=== PATIENT | female | born 1995 | race Caucasian/White ===

== ENCOUNTER 2024-03-15 08:00 | Outpatient (CLI) | payer OTHER ==
[2024-03-15 17:40] LABS: BILIRUBIN,URINE NEGATIVE (NEGATIVE); GLUCOSE, URINE (UA) NEGATIVE (NEGATIVE); KETONES,URINE (UA) NEGATIVE (NEGATIVE); LEUKOCYTE ESTERASE, URINE NEGATIVE (NEGATIVE); NITRITE,URINE NEGATIVE (NEGATIVE); OCCULT BLOOD,URINE NEGATIVE (NEGATIVE); PROTEIN,URINE NEGATIVE (NEGATIVE); UROBILINOGEN,URINE 0.2 (NORMAL) E.U./dL (NORMAL)
[2024-03-15 17:47] LABS: CLARITY,URINE CLEAR (CLEAR)
[2024-03-15 17:57] LABS: WBC,URINE 0-3 /HPF (0-5)
[2024-03-15 17:58] LABS: BACTERIA,URINE Few /HPF (None Seen); RBC,URINE 0-5 /HPF (0-5); SQUAMOUS EPITHELIAL CELL,UR MOD Squamous (<= Few)
== END 2024-03-15 23:59 | disposition home or self-care (01) ==
LOC: LAB.WC 08:00
PROVIDERS: ATTEND Nurse Practitioner
DX: Z34.00 Encounter for supervision of normal first pregnancy, unspecified trimester (principal)
CPT/HCPCS: 81001; 87086

== ENCOUNTER 2024-04-05 17:27 | Outpatient (CLI) | payer OTHER ==
[2024-04-05 17:56] LABS: BASOPHILS # (AUTO) 0.1 10^3/uL (0.0-0.1); BASOPHILS % (AUTO) 0.4 %; EOSINOPHILS # (AUTO) 0.2 10^3/uL (0.0-0.7); EOSINOPHILS % (AUTO) 1.3 %; HCT - HEMATOCRIT 38.9 % (37.0-47.0); HGB - HEMOGLOBIN 13.2 g/dL (12.0-16.0); LYMPHOCYTES # (AUTO) 4.6 10^3/uL (1.5-3.5); LYMPHOCYTES % (AUTO) 36.2 %; MEAN CORPUSCULAR HEMOGLOBIN 29.7 pg (27.0-31.0); MEAN CORPUSCULAR HGB CONC 33.9 g/dL (32.0-36.0); MEAN CORPUSCULAR VOLUME 87.4 fL (81.0-99.0); MEAN PLATELET VOLUME 10.6 fL (7.9-10.8); MONOCYTES # (AUTO) 0.8 10^3/uL (0.0-1.0); MONOCYTES % (AUTO) 5.9 %; NEUTROPHILS # (AUTO) 7.2 10^3/uL (1.5-6.6); NEUTROPHILS % (AUTO) 55.9 %; PLT - PLATELET COUNT 264 10^3/uL (130-450); RED BLOOD COUNT 4.45 10^6/uL (4.20-5.40); RED CELL DISTRIBUTION WIDTH 12.4 % (12.0-15.0); WHITE BLOOD COUNT 12.8 x10^3/uL (4.8-10.8)
[2024-04-05 20:51] LABS: ESTIMATED AVERAGE GLUCOSE 91 mg/dL (70-100); HEMOGLOBIN A1c% 4.8 % (4.27-6.07)
[2024-04-05 20:57] LABS: CHLAMYDIA TRACHOMATIS DNA NEGATIVE (NEGATIVE); NEISSERIA GONORRHOEAE DNA NEGATIVE (NEGATIVE); TRICHOMONAS VAGINALIS DNA NEGATIVE (NEGATIVE)
[2024-04-07 05:09] LABS: HIV SCREEN 4TH GENERATION Non Reactive (Non Reactive)
[2024-04-07 06:08] LABS: HBsAG SCREEN Negative (Negative)
[2024-04-07 11:08] LABS: VARICELLA-ZOSTER AB IGG 336 index (Immune >165)
[2024-04-08 05:28] LABS: HCV AB Non Reactive (Non Reactive)
== END 2024-04-05 17:28 | disposition home or self-care (01) ==
LOC: LAB 17:27
PROVIDERS: ATTEND Nurse Practitioner
DX: Z36.8A Encounter for antenatal screening for other genetic defects (principal); O99.280 Endocrine, nutritional and metabolic diseases complicating pregnancy, unspecified trimester; E28.2 Polycystic ovarian syndrome
CPT/HCPCS: 36415; 83036; 85025; 86592; 86762; 86787; 86803; 86850; 86900; 86901; 87340; 87389; 87491; 87591; 87661

== ENCOUNTER 2024-10-24 07:50 | Inpatient (IN) ==
[2024-10-24] MEDS ORDERED: METHYLERGONOVINE 0.2 MG/ML VIAL IM PRN ×2 (08:14→20:17)
[2024-10-24] MEDS ORDERED: SODIUM CHLORIDE FLUSH 0.9% 10 ML SYRINGE IVP PRN ×2 (08:14→20:17)
[2024-10-24] MEDS ORDERED: NIFEdipine 10 MG CAPSULE PO PRN ×2 (08:14→20:17)
[2024-10-24] MEDS ORDERED: CARBOPROST TROMETHAMINE 250 MCG/ML VIAL IM PRN (08:14)
[2024-10-24] MEDS ORDERED: miSOPROStoL 200 MCG TABLET BC PRN ×2 (08:14→20:17)
[2024-10-24] MEDS ORDERED: lidocaine 1% 20 ML MDV ID PRN ×2 (08:14→20:17)
[2024-10-24] MEDS ORDERED: LACTATED RINGERS 1,000 ML IV PRN ×2 (08:14→20:17)
[2024-10-24] MEDS ORDERED: ONDANSETRON 4 MG/2 ML VIAL IVP PRN ×2 (08:14→21:31)
[2024-10-24] MEDS ORDERED: hydrALAZINE INJ 20 MG/ML VIAL IVP PRN ×3 (08:14→20:17)
[2024-10-24] MEDS ORDERED: LABETALOL 20 MG/4 ML SYRINGE IVP PRN ×6 (08:14→20:17)
[2024-10-24] MEDS ORDERED: OXYTOCIN 10 UNIT/ML VIAL IM PRN ×2 (08:14→20:17)
[2024-10-24] MEDS ORDERED: OXYTOCIN/SODIUM CHLORIDE 500 ML IV PRN ×2 (08:14→20:17)
[2024-10-24 08:52] LABS: BASOPHILS % (AUTO) 0.2 %; EOSINOPHILS # (AUTO) 0.1 10^3/uL (0.0-0.7); EOSINOPHILS % (AUTO) 0.9 %; HCT - HEMATOCRIT 35.5 % (37.0-47.0); HGB - HEMOGLOBIN 10.9 g/dL (12.0-16.0); LYMPHOCYTES # (AUTO) 2.3 10^3/uL (1.5-3.5); LYMPHOCYTES % (AUTO) 17.5 %; MEAN CORPUSCULAR HEMOGLOBIN 24.8 pg (27.0-31.0); MEAN CORPUSCULAR HGB CONC 30.7 g/dL (32.0-36.0); MEAN CORPUSCULAR VOLUME 80.7 fL (81.0-99.0); MEAN PLATELET VOLUME 11.8 fL (7.9-10.8); MONOCYTES # (AUTO) 0.8 10^3/uL (0.0-1.0); MONOCYTES % (AUTO) 6.1 %; NEUTROPHILS # (AUTO) 9.6 10^3/uL (1.5-6.6); NEUTROPHILS % (AUTO) 74.8 %; PLT - PLATELET COUNT 260 10^3/uL (130-450); WHITE BLOOD COUNT 12.8 x10^3/uL (4.8-10.8)
[2024-10-24] MEDS: miSOPROStoL 100 MCG TABLET PO SCH (08:56)
--- NOTE | 2024-10-24 09:17 | HISTORY & PHYSICAL EXAMINATION ---
Admit History Smoking Status: Never smoker Other Maternal History Other Maternal History: HPI: This 28 yo @ 40+3 weeks by LMP and confirmed by 11+4 week ultrasound. She had been marlee irregularity yesterday and last night but they had stopped and she is here for an elective induction of labor today. Upon arrival her cervix was 1cm/60/-3/posterior/soft and vertex with intact membranes. ZARCO SCORE: 5. We reviewed management options at length and she has been consented for elective induction of labor with risks to include but not limited to section, vacuum extraction, episiotomy. She has been a Midwifery patient of [facility] care for the duration of her which has remained uncomplicated. ROS: No Headache, visual changes or right upper quadrant abdominal pain. Denies significant N/V. Denies urinary urgency or dysuria. All other symptoms reviewed and were negative except per HPI. In the event of an emergency, accepts the administration of blood products. Recent BP: 118/81 Labs: 10.9/35.5, 260 Last u/s EFW: FAS, 50% Total maternal weight gain: 36# ALLERGIES NKDA RX: PNV, Aspirin Medical Hx: Obesity Surgeries: Lateral meniscus repair Family history: Large babies, she was over 9# at , all women seem to have vaginal deliveries Social Hx: Monogamous with male partner. Denies current use of alcohol or tobacco, marijuana or other recreational drugs. Reports that she is safe in current relationship. OB Hx: G1: SAB G2: SAB G2:Current Specific Issues/Plans LMP: 01/15/2024 DADA by LMP: 10/21/2024 US dating 04/05/2024 @ 11+4 EDC 10/20/2023 Final DADA: 10/21/2024 FOB: Cj Martínez Started LDASA @ 12 weeks. Pre- Weight: 208 lb BMI: 35.14 Blood type: A+ Antibody: negative CBC: 13.2/38.9/264 RUB:immune VZV:immune HBsAg: negative HepC: NR RPR/AB-EIA: NR HIV:NR PAP: 08/2023 (normal) no dysplasia hx. GC/CT: Collected 04/05/2024 HSV: denies Genetic testing: [id number]- Negative Covid: x 2, declines booster Flu: declines RSV: desires @ 32wks FAS: Placenta: Posterior Cord: 3VC REGAN: 14cm EFW: 399g 50gm OGCT: 112 TDAP: 07/30/2024 Breast Pump: 07/30/2024 3rd trimester [id number] HCT 35.7 HGB 11.4 3rd trimester RPR NR GBS: Negative Delivery plan: Anticipate . Contraception:unsure Physical exam: Normocephalic, atraumatic No significant edema No increased work of breathing Abdomen gravid, soft, nontender. EFW 4100 FHR baseline 135, moderate variability, + accelerations, no decelerations Contractions palpate irregularly and mild SVE /60/-3, vertex, membranes intact Bilateral LE's no edema Mood is good. Assessment: 28 yo @ 40+3 weeks gestation by 11+4 wk U/S Elective induction of labor at term FHR 135 Cat I GBS NEG Plan: Admit to [facility] for preinduction cervical ripening, misoprostol 50mcg buccal q 4 hours Continuous monitoring Jacuzzi PRN. Nitrous oxide PRN. Epidural PRN Maternal Request. Anticipate . Meds/Allgy Home Medications Ambulatory Orders Medication Instructions Recorded Confirmed aspirin 81 mg tablet,delayed 81 mg PO QDAY 05/03/24 10/04/24 release (Adult Low Dose Aspirin) vits 75-iron 28 mg-folic pkg PO 05/03/24 10/04/24 acid 800 mcg-omega3 440 mg oral pack (One Daily ) Allergies Allergies Allergy/AdvReac Type Severity Reaction Status Date / Time No Known Drug Allergies Allergy Verified 10/04/24 14:05 PFSH Active Problems All Active Problems (Updated 09/26/24 @ 12:51 by Lauren Perkins MA) Encounter for screening for Streptococcus B (Acute) Laceration of left thumb (Acute) (Acute) Breast abscess (Acute) Encounter for other specified screening (Acute) Supervision of normal first (Acute) Medical History Medical History (Updated 09/26/24 @ 12:51 by Lauren Perkins MA) PCOS (polycystic ovarian syndrome) Surgical History Surgical History (Updated 05/05/24 @ 09:52 by Liz Stanton, [place], SWITCH ADJUSTER) Status post lateral meniscus repair 2017 Social History Social History (Updated 05/05/24 @ 09:54 by Liz Stanton, [place], SWITCH ADJUSTER) Smoking Status: Never smoker Plan for Labor Plan For Labor I expect patient to be DC'd or transferred within 96 hours.: Yes Conclusion/Plan Lab Results 10/24/24 08:10
--- NOTE | 2024-10-24 13:17 | PHARMACY PROGRESS NOTE ---
Best Possible Medication History Admit Date and Time: 10/24/24 [id number] Home Medications Medication Instructions Recorded Confirmed Type aspirin 81 mg tablet,delayed 81 mg PO DAILY 05/03/24 10/24/24 History release (Adult Low Dose Aspirin) vits 75-iron 28 mg-folic 1 pkg PO DAILY 05/03/24 10/24/24 History acid 800 mcg-omega3 440 mg oral pack (One Daily ) Processed by: Pharmacy Medications reviewed in ED?: No Medication History completed: Yes Patient Interview: Completed Secondary Source(s): Insurance records [facility] Statement: As the person ultimately responsible for medication therapy, providers are able to order a medication from an existing home medication list in [facility] via the "Reconcile Routine" prior to Confirmation of that medication by field technical support consultant. Such practice is discouraged except when the physician, in their clinical judgment, deems that a medical need exists for a medication without regard to pr evious use.
--- NOTE | 2024-10-24 15:53 | ANESTHESIA PROCEDURE NOTE ---
Pre-Anesthesia VS, & Labs Diagnosis Surgical Diagnosis:: term labor pain Procedure Procedure: epidural for Vitals Vital Signs: Temp 36.9 C 10/24/24 08:11 NPO Last Fluid Intake: t/o day Last Food Intake: dinner Is Patient ?: Yes Lab Results Current Lab Results: Laboratory Tests 10/24/24 08:10: WBC 12.8 H, RBC 4.40, Hgb 10.9 L, Hct 35.5 L, MCV 80.7 L, MCH 24.8 L, MCHC 30.7 L, RDW 15.0, Plt Count 260, MPV 11.8 H, Neut # (Auto) 9.6 H, Lymph # (Auto) 2.3, [place] # (Auto) 0.8, Eos # (Auto) 0.1, Baso # (Auto) 0.0, Absolute Nucleated RBC 0.00, Nucleated RBC % 0.0, Blood Type A POSITIVE, Antibody Screen NEGATIVE Lab results reviewed: Yes 10/24/24 08:10 Meds/Allgy Home Medications Ambulatory Orders Medication Instructions Recorded Confirmed aspirin 81 mg tablet,delayed 81 mg PO DAILY 05/03/24 10/24/24 release (Adult Low Dose Aspirin) vits 75-iron 28 mg-folic 1 pkg PO DAILY 05/03/24 10/24/24 acid 800 mcg-omega3 440 mg oral pack (One Daily ) Allergies Allergies Allergy/AdvReac Type Severity Reaction Status Date / Time No Known Drug Allergies Allergy Verified 10/04/24 14:05 PFSH Active Problems All Active Problems (Updated 09/26/24 @ 12:51 by Lauren Perkins MA) Encounter for screening for Streptococcus B (Acute) Laceration of left thumb (Acute) (Acute) Breast abscess (Acute) Encounter for other specified screening (Acute) Supervision of normal first (Acute) Medical History Medical History (Updated 09/26/24 @ 12:51 by Lauren Perkins MA) PCOS (polycystic ovarian syndrome) Surgical History Surgical History (Updated 10/24/24 @ 15:53 by Melchor Jolley CRNA) S/P wisdom tooth extraction Status post lateral meniscus repair 2017 Social History Social History (Updated 05/05/24 @ 09:54 by Liz Stanton CNM, LOADER OPERATOR) Smoking Status: Never smoker Anesthesia Exam (Expanded) Exam General: Alert, Oriented x3 and Cooperative Dental: WNL Mouth Openin Fingerbreadth Neck Mobility: Normal Mallampati classification: II Thyromental Distance: 4-6 cm Respiratory: No respiratory distress Cardiovascular: Regular rate Neurological: Normal speech Mental/Cognitive Status: Alert/Oriented X3 and Normal for patient Cognitive Status: Within normal limits Exam Exam Vital Signs: Vital Signs x48h Temp 10/24/24 08:11 36.9 C Plan Plan Anesthesia Type: Epidural Consent for Procedure(s) Verified and Reviewed: Yes Code Status: Attempt Resuscitation ASA Classification ASA classification: 2-Mild systemic disease Is this case an emergency?: No
--- NOTE | 2024-10-24 18:46 | PROVIDER PROGRESS NOTE ---
Labor Progress Note Labor Progress Note Labor Progress Note/Additional Text: 135, moderate, + accelerations, - decelerations, category I tracing. Miso x3. SVE 2/60/-3/ intact, posterior membrane sweep talking through contractions. okay to administer next dose of BC misoprostol.
[2024-10-24] MEDS ORDERED: TRANEXAMIC ACID IN NACL 1,000 MG/100 ML BAG IV PRN (20:17)
[2024-10-24] MEDS ORDERED: TERBUTALINE 1 MG/ML VIAL SUBQ PRN (20:17)
[2024-10-24] MEDS ORDERED: miSOPROStoL 200 MCG TABLET PR PRN (20:17)
[2024-10-24] MEDS ORDERED: fentaNYL 100 MCG/2 ML VIAL IVP PRN (20:17)
[2024-10-24] MEDS: LACTATED RINGERS 1,000 ML IV PRN (20:30)
[2024-10-24] MEDS ORDERED: ROPIVACAINE 0.2% 200 MG/100 ML BAG EP ONE (20:52)
[2024-10-24] MEDS ORDERED: NALOXONE 0.4 MG/ML VIAL IVP PRN (21:31)
[2024-10-24] MEDS ORDERED: METOCLOPRAMIDE 10 MG/2 ML VIAL IVP PRN (21:31)
[2024-10-24] MEDS ORDERED: NALBUPHINE 10 MG/ML AMP IVP PRN (21:31)
[2024-10-24] MEDS ORDERED: diphenhydrAMINE INJ 50 MG/ML VIAL IVP PRN (21:31)
[2024-10-24] MEDS ORDERED: ePHEDrine 50 MG/ML VIAL IVP ONE (21:59)
[2024-10-24] MEDS: ePHEDrine 50 MG/ML VIAL IVP PRN (22:04)
--- NOTE | 2024-10-24 22:42 | PROVIDER PROGRESS NOTE ---
Labor Progress Note Labor Progress Note Labor Progress Note/Additional Text: SROM @ 2005, copious amount of clear fluid Florentino q 2-3 Status post 3 dose of misoprostol comfortable with epidural, difficult placement followed by hypotensive episode FHT 130, moderate variability, + accelerations, - decelerations. Category I tracing. SVE /-1 grossly ruptured, palpable forebag easily ruptured with amniohook.
[2024-10-25] MEDS: ROPIVACAINE 0.2% 200 MG/100 ML BAG EP PRN (04:10)
[2024-10-25] MEDS: SODIUM CHLORIDE FLUSH 0.9% 10 ML SYRINGE IVP SCH ×2 (07:40→07:41)
[2024-10-25] MEDS: CALCIUM CARBONATE CHEW 500 MG TABLET PO SCH (07:40)
--- NOTE | 2024-10-25 07:59 | PROVIDER PROGRESS NOTE ---
Labor Progress Note Labor Progress Note Labor Progress Note/Additional Text: Patient comfortable with dense epidural. SVE 7/100/+1/ grossly ruptured. Contractions spacing out 2-4.5 minutes. FHT baseline 140, moderate variability, + accelerations, no significant decelerations. Discussed minimal progress through the night and the recommendation for pitocin for labor augmentation. Patient agreeable. Will begin oxytocin by protocol.
[2024-10-25] MEDS: OXYTOCIN/SODIUM CHLORIDE 500 ML IV SCH (08:26)
[2024-10-25 15:15] LABS: ALBUMIN 3.4 g/dL (3.2-5.5); ALBUMIN/GLOBULIN RATIO 1.2 (1.0-2.2); BILIRUBIN,TOTAL 0.5 mg/dL (0.2-1.0); CALCIUM 8.9 mg/dL (8.5-10.3); CREATININE 0.7 mg/dL (0.6-1.3); POTASSIUM 3.8 mmol/L (3.5-4.5); TOTAL PROTEIN 6.3 g/dL (6.4-8.9)
[2024-10-25] MEDS: TRANEXAMIC ACID IN NACL 1,000 MG/100 ML BAG IV PRN (17:21)
--- NOTE | 2024-10-25 17:56 | DELIVERY NOTE ---
Delivery Note Delivery Outcome Delivery Date: 10/25/24 Delivery Time: 17:00 Delivery Comments (Free Text/Narrative) Delivery Comments (Free Text/Narrative): This 28-year-old, @ 40 +4 weeks gestation presented for elective induction of labor on 10/24/2024. Cervix was 2cm and Vertex presentation. GBS negative. Pre- induction cervical ripening with misorpostol followed by oxytocin as induction method. Maximum oxytocin infusion of 16mu/min. FHR pattern demonstrated 135 baseline in a category I prior to second stage. Normal labor course. Epidural placed upon maternal request. SROM occurred 10/25/2024 @ 2004. She then progressed to complete/complete 10/25/2024 @ 1337 and second stage began @ 1338. : Normal spontaneous vaginal delivery of a viable male infant on 10/25/2024 @ 1700. "Nik Sage" Nuchal cord x1, not reducible body cord x1, delivered through. The was placed on maternal abdomen, stimulated, dried and placed skin to skin. Apgars 8 & 9 @ 1 & 5 minutes. Her bleeding had briskly increased by infant's 3 minutes of life so the umbilical cord was doubly clamped by delivering provider and cut by FOB. 3VC. Cord blood was obtained. Fundal massage and gently cord traction applied for active management of the third stage, placenta delivered spontaneously @ 1707 but bleeding increased and a large amount of trailing membranes were identified. TXA 1g administered IV per protocol. Brisk manual sweeping to remove retained fragments amongst brisker bleeding @ 1707. QBL 1400. Placenta was not sent to pathology. Consulted MD and proceeded with recommendation not for post placental sweeping antibiotics unless symptomatic. Pitocin administered via IV for hemostasis and allowed to run freely. Uterine massage was performed until uterus was deemed firm. weight pending at this time. Inspection of the perineum was a third degree laceration in addition to right labial wall laceration. See Dr. Roman's separate dictation of perineal and vaginal wall lacerations. Uterus again massaged and found to be firm. Needle and sponge counts were correct. Uterine fundus firm and there is no excessive bleeding. Tissues well approximated. Skin to skin first with mother then with FOB. Family bonding well. Both mother and baby are in stable condition.
[2024-10-25] MEDS ORDERED: ACETAMINOPHEN 500 MG TABLET PO PRN (18:36)
[2024-10-25] MEDS ORDERED: NIFEdipine 10 MG CAPSULE PO PRN (18:36)
[2024-10-25] MEDS ORDERED: OXYTOCIN/SODIUM CHLORIDE 500 ML IV PRN (18:36)
[2024-10-25] MEDS ORDERED: hydrALAZINE INJ 20 MG/ML VIAL IVP PRN ×2 (18:36)
[2024-10-25] MEDS ORDERED: LABETALOL 20 MG/4 ML SYRINGE IVP PRN ×2 (18:36)
[2024-10-25] MEDS ORDERED: SIMETHICONE CHEW 80 MG TABLET PO PRN (18:36)
[2024-10-25] MEDS ORDERED: NALOXONE 0.4 MG/ML VIAL IVP PRN (18:36)
[2024-10-25] MEDS ORDERED: LABETALOL 5 MG/1 ML 20 ML MDV IVP PRN (18:36)
[2024-10-25] MEDS: ACETAMINOPHEN 500 MG TABLET PO PRN (18:49)
[2024-10-25] MEDS: IBUPROFEN 600 MG TABLET PO PRN (18:49)
--- NOTE | 2024-10-25 23:16 | PROCEDURE REPORT ---
Hospitalist Procedure Note Procedure Note Procedure Note: I was called to help Sondra was repair of ob laceration. Patient had a vaginal delivery after about 3 hrs of pushing. She was not bleeding much when I walked in. Had already received TXA and had bled over a liter from retained membranes that Sondra removed. She was very stable. I introduced myself to patient and her . She was holding her baby, legs in stirrups. Her vulva was very swollen. I gowned up and examined her. The anal sphincter was partially torn and pretty ragged. The anal tissue was still in tact. The sphincter was brought together with 2-0 Vicryl figure of 8s going all around the muscle and incorporating the overlying fascia for support. There was a vaginal laceration that was repaired with 3-0 Vicryl rapide. and then this was used to close the skin over the perineum. After I completed the repair, I checked the rectum and it was intact as far as I could reach. The patient bled very little during the repair and remained stable.
[2024-10-26] MEDS: oxyCODONE 5 MG TABLET PO ONE (01:57)
[2024-10-26] MEDS: DOCUSATE SODIUM 100 MG CAPSULE PO SCH (08:38)
[2024-10-26] MEDS: LACTATED RINGERS 500 ML IV ONE (11:07)
--- NOTE | 2024-10-26 14:12 | PROVIDER PROGRESS NOTE ---
Subjective Subjective Subjective: Subjective: Patient reports she is doing well. Comfortable with tylenol, IBU and a one time dose of oxycodone after epidural anesthesia had worn off. Some significant tenderness to perineum post 3rd degree laceration was repaired by Dr. Abel harris. Denies heavy bleeding. Ambulating some the last few hours. Showered Pelvic and abdominal pain well-controlled. Tolerating oral intake. Diet: Regular. Had prolonged numbness to legs, unable to ambulate well until this morning. Had indwelling catheter overnight. Has voided since removal. Passing flatus. Denies BM. Patient is bonding with baby in room Breast feeding going well. Significant blood loss, EBL 1400. Denies feeling lightheaded, dizzy or excessively fatigued. Objective General: Alert, oriented, no apparent distress. Cardiovascular: 2+ generalized edema. Not hypertensive. Repeat CMP ordered for tomorrow. Lungs: No increased work of breathing. Abdomen: Uterus firm. Below umbilicus. No guarding or rebound tenderness. Extremities: No pain on palpation. Distal pulses intact. Assessment and Plan day #1, doing well. 28yo s/p 10/25/2024 @ 1700. Nuchal cord x1, body cord x1 Retained placental products/membranes , resolved with membrane sweep Acute chronic blood loss. Feeling well today. CBC tomorrow. Discussed iron infusion if symptomatic/significant drop in H&H Significant generalized edema, rare elevated BP in labor, serum creatinine 0.7. Discussed preeclampsia precautions. - Routine - Anticipate discharge tomorrow Current Medications Current Medications Current Medications: Current Medications Generic Name Dose Route Start Last Admin Trade Name Myron PRN Reason Stop Dose Admin Acetaminophen 1,000 mg 10/24/24 08:27 10/26/24 05:11 Acetaminophen 500 Mg Tablet PO 1,000 mg Q8H PRN Administration Pain or Fever > 38C (100.4F) Calcium Carbonate/Glycine 500 mg 10/24/24 09:00 10/26/24 11:06 Calcium Carbonate Chew 500 Mg Tablet PO Not Given BID [facility] Carboprost Tromethamine 250 mcg 10/24/24 08:14 Carboprost Tromethamine 250 Mcg/Ml Vial IM 10/29/24 08:17 Q15M PRN Step 4: Hemorrhage protocol Diphenhydramine HCl 12.5 - 25 mg 10/24/24 21:31 Diphenhydramine Inj 50 Mg/Ml Vial IVP Q6HR PRN ITCHING Docusate Sodium 100 mg 10/25/24 21:00 10/26/24 11:06 Docusate Sodium 100 Mg Capsule PO Not Given BID ALEC Hydralazine HCl 5 - 20 mg 10/24/24 08:14 Hydralazine Inj 20 Mg/Ml Vial IVP Q20M PRN SBP >160 or DBP >110 Protocol Hydralazine HCl 10 mg 10/24/24 08:14 Hydralazine Inj 20 Mg/Ml Vial IVP 10/29/24 08:17 .ONCE PRN Step 9 of Labetalol protocol Protocol Hydralazine HCl 5 - 10 mg 10/24/24 20:17 Hydralazine Inj 20 Mg/Ml Vial IVP Q20M PRN SBP> or= 160 OR DBP> or= 110 Protocol Hydralazine HCl 10 mg 10/25/24 18:36 Hydralazine Inj 20 Mg/Ml Vial IVP .ONCE PRN SBP> or= 160 OR DBP> or= 110 Protocol Hydralazine HCl 5 - 10 mg 10/25/24 18:36 Hydralazine Inj 20 Mg/Ml Vial IVP Q20M PRN SBP >=160 and/or DBP >=110 Protocol Lactated Ringer's 1,000 mls @ 100 mls/hr 10/24/24 08:14 10/25/24 18:42 Lr IV Infused .Q10H PRN Infusion Save for active labor Oxytocin/Sodium Chloride 500 mls @ 999 mls/hr 10/24/24 08:14 Pitocin/Sodium Chloride IV 10/29/24 08:17 PRN PRN POST- HEMORR PREVENTION 999 MILLIUNIT/MIN Tranexamic Acid 1,000 mg in 100 mls @ 600 mls/hr 10/24/24 08:14 10/25/24 17:35 Tranexamic 1,000 Mg/100ml-Nacl IV 10/29/24 08:17 Infused .ONCE PRN Infusion EBL >1200mL and within 3hr Lactated Ringer's 1,000 mls @ 999 mls/hr 10/24/24 08:14 Lr IV PRN PRN distress Lactated Ringer's 500 mls @ 999 mls/hr 10/24/24 20:17 Lr IV PRN PRN Anesthesia Oxytocin/Sodium Chloride 500 mls @ 999 mls/hr 10/24/24 20:17 Pitocin/Sodium Chloride IV PRN PRN POST- HEMORR PREVENTION Protocol 999 MILLIUNIT/MIN Tranexamic Acid 1,000 mg in 100 mls @ 600 mls/hr 10/24/24 20:17 Tranexamic 1,000 Mg/100ml-Nacl IV Q30M PRN EBL >1200mL and within 3hr Oxytocin/Sodium Chloride 500 mls @ 999 mls/hr 10/25/24 18:36 Pitocin/Sodium Chloride IV PRN PRN POST- HEMORR PREVENTION Protocol 999 MILLIUNIT/MIN Ibuprofen 600 mg 10/25/24 18:36 10/26/24 08:37 Ibuprofen 600 Mg Tablet PO 600 mg Q6HR PRN Administration Moderate Pain (Level 4-6) Labetalol HCl 20 - 80 mg 10/24/24 08:14 Labetalol 20 Mg/4 Ml Syringe IVP Q10M PRN SBP >160 or DBP >110 Protocol Labetalol HCl 20 mg 10/24/24 08:14 Labetalol 20 Mg/4 Ml Syringe IVP 10/29/24 08:17 .ONCE PRN Step 9 of nifedipine protocol Protocol Labetalol HCl 40 mg 10/24/24 08:14 Labetalol 20 Mg/4 Ml Syringe IVP 10/29/24 08:17 .ONCE PRN Step 9 of hydrALAZine protocol Protocol Labetalol HCl 20 - 80 mg 10/24/24 20:17 Labetalol 20 Mg/4 Ml Syringe IVP Q10M PRN SBP> or= 160 OR DBP> or= 110 Protocol Labetalol HCl 20 mg 10/24/24 20:17 Labetalol 20 Mg/4 Ml Syringe IVP .ONCE PRN SBP> or= 160 OR DBP> or= 110 Protocol Labetalol HCl 20 - 40 mg 10/24/24 20:17 Labetalol 20 Mg/4 Ml Syringe IVP Q10M PRN SBP> or= 160 OR DBP> or= 110 Protocol Labetalol HCl 20 - 80 mg 10/25/24 18:36 Labetalol 5 Mg/1 Ml 20 Ml Mdv IVP Q10M PRN SBP> or= 160 OR DBP> or= 110 Protocol Labetalol HCl 20 - 40 mg 10/25/24 18:36 Labetalol 20 Mg/4 Ml Syringe IVP Q10M PRN SBP> or= 160 OR DBP> or= 110 Protocol Labetalol HCl 20 mg 10/25/24 18:36 Labetalol 20 Mg/4 Ml Syringe IVP .ONCE PRN SBP >=160 and/or DBP >=110 Protocol Methylergonovine Maleate 0.2 mg 10/24/24 08:14 Methylergonovine 0.2 Mg/Ml Vial IM 10/29/24 08:17 .ONCE PRN Step 2: Hemorrhage protocol Methylergonovine Maleate 0.2 mg 10/24/24 20:17 Methylergonovine 0.2 Mg/Ml Vial IM .ONCE PRN Hemorrhage Metoclopramide HCl 10 mg 10/24/24 21:31 Metoclopramide 10 Mg/2 Ml Vial IVP Q6HR PRN Nausea / Vomiting Misoprostol 800 mcg 10/24/24 08:14 Misoprostol 200 Mcg Tablet BC 10/29/24 08:17 .ONCE PRN Step 3: Hemorrhage protocol Misoprostol 600 mcg 10/24/24 20:17 Misoprostol 200 Mcg Tablet BC .ONCE PRN Hemorrhage Misoprostol 800 mcg 10/24/24 20:17 Misoprostol 200 Mcg Tablet AR .ONCE PRN Hemorrhage Nalbuphine HCl 2.5 - 5 mg 10/24/24 21:31 Nalbuphine 10 Mg/Ml Amp IVP Q4H PRN ITCHING Naloxone HCl 0.1 mg 10/24/24 21:31 Naloxone 0.4 Mg/Ml Vial IVP Q2M PRN RR<8 Naloxone HCl 0.4 mg 10/25/24 18:36 Naloxone 0.4 Mg/Ml Vial IVP .ONCE PRN Opioid Overdose Nifedipine 10 - 20 mg 10/24/24 08:14 Nifedipine 10 Mg Capsule PO Q20M PRN SBP >160 or DBP >110 Protocol Nifedipine 10 - 20 mg 10/24/24 20:17 Nifedipine 10 Mg Capsule PO Q20M PRN SBP> or= 160 OR DBP> or= 110 Protocol Nifedipine 10 - 20 mg 10/25/24 18:36 Nifedipine 10 Mg Capsule PO Q20M PRN SBP >=160 and/or DBP >=110 Protocol Ondansetron HCl 4 mg 10/24/24 08:14 Ondansetron 4 Mg/2 Ml Vial IVP Q4HR PRN Nausea / Vomiting Ondansetron HCl 4 mg 10/24/24 21:31 Ondansetron 4 Mg/2 Ml Vial IVP Q6HR PRN Nausea / Vomiting Oxytocin 10 unit 10/24/24 08:14 Oxytocin 10 Unit/Ml Vial IM 10/29/24 08:17 .ONCE PRN Step one: If no IV access Oxytocin 10 unit 10/24/24 20:17 Oxytocin 10 Unit/Ml Vial IM .ONCE PRN Step One if no IV access. Simethicone 80 mg 10/25/24 18:36 Simethicone Chew 80 Mg Tablet PO TID PRN Gas Sodium Chloride 10 ml 10/24/24 09:00 10/26/24 11:09 Sodium Chloride Flush 0.9% 10 Ml Syringe IVP Not Given 0100,0900,1700 ALEC Sodium Chloride 10 ml 10/24/24 08:14 Sodium Chloride Flush 0.9% 10 Ml Syringe IVP PRN PRN NEEDED PER PROVIDER ORDERS Sodium Chloride 10 ml 10/24/24 20:17 Sodium Chloride Flush 0.9% 10 Ml Syringe IVP PRN PRN NEEDED PER PROVIDER ORDERS Objective Vital Signs/Intake & Output Vital Signs: Vital Signs x48h Temp Pulse Resp BP Pulse Ox 10/26/24 08:44 36.7 C 96 18 117/65 98 Intake & Output: Intake & Output 10/23/24 10/24/24 10/25/24 10/26/24 23:59 23:59 23:59 23:59 Intake Total 2124 / 2124 4393 / 4393 800 / 800 Output Total 3250 / 3250 2950 / 2950 Balance 2124 1143 / 1143 -2150 / -2150 Weight (kg) 244 lb Lab Results 10/24/24 08:10 10/25/24 13:30 Other Labs: Lab Results x24hrs 10/25/24 Range/Units 13:30 Sodium 136 (135-145) mmol/L Potassium 3.8 (3.5-4.5) mmol/L Chloride 104 (101-111) mmol/L Carbon Dioxide 21 (21-32) mmol/L Anion Gap 11.0 (6-13) BUN 9 (6-20) mg/dL Creatinine 0.7 (0.6-1.3) mg/dL Estimated GFR (MDRD) 100 (>89) Glucose 64 L (74-104) mg/dL Calcium 8.9 (8.5-10.3) mg/dL Total Bilirubin 0.5 (0.2-1.0) mg/dL AST 16 (10-42) IU/L ALT 9 L (10-60) IU/L Alkaline Phosphatase 206 H (42-121) IU/L Total Protein 6.3 L (6.4-8.9) g/dL Albumin 3.4 (3.2-5.5) g/dL Globulin 2.9 (2.1-4.2) g/dL Albumin/Globulin Ratio 1.2 (1.0-2.2)
[2024-10-26] MEDS: GABAPENTIN 300 MG CAPSULE PO SCH (18:27)
--- NOTE | 2024-10-26 19:45 | CONSULTATION NOTE ---
Consultation Report: Called by RN at request of Domenica MURRELL as patient having back pain, complaints of tingling in back and concerns of nerve injury from labor epidural. [facility] Active Problems All Active Problems (Updated 09/26/24 @ 12:51 by Lauren Perkins MA) Encounter for screening for Streptococcus B (Acute) Laceration of left thumb (Acute) (Acute) Breast abscess (Acute) Encounter for other specified screening (Acute) Supervision of normal first (Acute) Medical History Medical History (Updated 09/26/24 @ 12:51 by Lauren Perkins MA) PCOS (polycystic ovarian syndrome) Surgical History Surgical History (Updated 10/24/24 @ 15:53 by Melchor Jolley CRNA) S/P wisdom tooth extraction Status post lateral meniscus repair 2017 Social History Social History (Updated 05/05/24 @ 09:54 by Liz Stanton, [place], HOME LENDING OFFICER) Smoking Status: Never smoker Conclusion/Plan Lab Results Lab results reviewed: Yes 10/24/24 08:10 10/25/24 13:30 Other Other Results/Comments: I called Sky Stanton CNM and told her my impression was that the patient has back strain and possible peroneal nerve injury from prolonged pushing during labor. I recommended continuing Gabapentin, ibuprofen and tylenol. I ordered neuro checks with VS. If motor or sensory deficits develop will consider imaging. I had a more comfortable recliner chair brought to her room for nursing. I will round on her in the morning. Meds/Allgy Home Medications Ambulatory Orders Medication Instructions Recorded Confirmed aspirin 81 mg tablet,delayed 81 mg PO DAILY 05/03/24 10/24/24 release (Adult Low Dose Aspirin) vits 75-iron 28 mg-folic 1 pkg PO DAILY 05/03/24 10/24/24 acid 800 mcg-omega3 440 mg oral pack (One Daily ) Allergies Allergies Allergy/AdvReac Type Severity Reaction Status Date / Time No Known Drug Allergies Allergy Verified 10/04/24 14:05 Review of Systems Exam of lower extremities negative for motor or sensory deficits. Full strength dorsal and plantar flexion equal on both legs, able to lift legs off bed and ambulate. Complaints of heel numbness "feels like a rubber band around my heel". No sensory deficits, able to sensate sharp/dull equally on both feet/legs. States pain in back was while she was sitting in chair nursing and leaning forwards. I reassured patient, stated that we would get imaging if she developed weakness or neurologic deficits and that I would see her in the am. Anesthesia Exam (Expanded) Exam Dental: WNL Exam Exam Vital Signs: Vital Signs x48h Temp Pulse Resp BP Pulse Ox 10/26/24 18:28 36.7 C 88 18 125/75 98 10/26/24 14:30 37.0 C 90 16 124/75 92
[2024-10-26] MEDS ORDERED: WITCH HAZEL/GLYCERIN 1 PAD TOP PRN (22:32)
[2024-10-26] MEDS: HYDROCORTISONE 1% CREAM 28 GM TUBE TOP SCH (22:53)
[2024-10-27 07:34] LABS: HCT - HEMATOCRIT 26.2 % (37.0-47.0); MEAN CORPUSCULAR HGB CONC 30.5 g/dL (32.0-36.0); MEAN CORPUSCULAR VOLUME 81.9 fL (81.0-99.0); MEAN PLATELET VOLUME 11.4 fL (7.9-10.8); RED BLOOD COUNT 3.2 10^6/uL (4.20-5.40); RED CELL DISTRIBUTION WIDTH 15.8 % (12.0-15.0); WHITE BLOOD COUNT 16.5 x10^3/uL (4.8-10.8)
--- NOTE | 2024-10-27 10:01 | CONSULTATION NOTE ---
Consultation Report: I saw Reba this am, she is feeling much better, states only right heel numbness, able to ambulate and feels ready to go home. Able to nurse baby comfortably on her side. Back pain improved on current meds. I told her the heel numbness is most likely due to stirrup compression of nerves behind knee (peroneal/tibial branches) and should resolve. PFSH Active Problems All Active Problems (Updated 09/26/24 @ 12:51 by Lauren Perkins MA) Encounter for screening for Streptococcus B (Acute) Laceration of left thumb (Acute) (Acute) Breast abscess (Acute) Encounter for other specified screening (Acute) Supervision of normal first (Acute) Medical History Medical History (Updated 09/26/24 @ 12:51 by Lauren Perkins MA) PCOS (polycystic ovarian syndrome) Surgical History Surgical History (Updated 10/24/24 @ 15:53 by Melchor Jolley CRNA) S/P wisdom tooth extraction Status post lateral meniscus repair 2017 Social History Social History (Updated 05/05/24 @ 09:54 by Liz Stanton, [place], FERRULER) Smoking Status: Never smoker Conclusion/Plan Lab Results Lab results reviewed: Yes 10/27/24 07:05 10/25/24 13:30 Other Other Results/Comments: I am OK to discharge to home if obstetrically ready per OB provider. Have her reach out to us if she has further issues or concerns. Thank you Meds/Allgy Home Medications Ambulatory Orders Medication Instructions Recorded Confirmed aspirin 81 mg tablet,delayed 81 mg PO DAILY 05/03/24 10/24/24 release (Adult Low Dose Aspirin) vits 75-iron 28 mg-folic 1 pkg PO DAILY 05/03/24 10/24/24 acid 800 mcg-omega3 440 mg oral pack (One Daily ) Allergies Allergies Allergy/AdvReac Type Severity Reaction Status Date / Time No Known Drug Allergies Allergy Verified 10/04/24 14:05 Review of Systems Exam of lower extremities negative for motor or sensory deficits. Full strength dorsal and plantar flexion equal on both legs, able to lift legs off bed and ambulate. Complaints of heel numbness "feels like a rubber band around my heel". No sensory deficits, able to sensate sharp/dull equally on both feet/legs. States pain in back was while she was sitting in chair nursing and leaning forwards. I reassured patient, stated that we would get imaging if she developed weakness or neurologic deficits and that I would see her in the am. Anesthesia Exam (Expanded) Exam Dental: WNL Exam Exam Vital Signs: Vital Signs x48h Temp Pulse Resp BP Pulse Ox 10/27/24 02:00 36.6 C 82 16 102/66 99 10/27/24 02:00 36.6 C 82 16 102/66 99
[2024-10-27 12:12] LABS: BILIRUBIN,URINE NEGATIVE (NEGATIVE); GLUCOSE, URINE (UA) NEGATIVE (NEGATIVE); KETONES,URINE (UA) NEGATIVE (NEGATIVE); LEUKOCYTE ESTERASE, URINE LARGE (NEGATIVE); NITRITE,URINE NEGATIVE (NEGATIVE); OCCULT BLOOD,URINE LARGE (NEGATIVE); PROTEIN,URINE NEGATIVE (NEGATIVE); UROBILINOGEN,URINE 0.2 (NORMAL) E.U./dL (NORMAL)
[2024-10-27 12:17] LABS: CLARITY,URINE SL. CLOUDY (CLEAR)
--- NOTE | 2024-10-27 12:19 | Discharge Summary ---
Discharge Summary HOSPITAL COURSE Hospital Course: Brief History: She is a patient of [facility] who presented on 10/24/2024 for induction of labor. Cervix was 2cm and vertex with intact membranes. She received misoprostol for pre-induction cervical ripening followed by pitocin for induction of labor with a maximum infusion rate of 16mU/min. Epidural was placed per maternal request. SROM occurred and was noted to be a moderate amount of clear fluid. She spontaneously progressed to deliver a viable male on 10/25/2024 @ 1700. Perineum was found to have a 3rd degree laceration which was repaired by semiconductor dies loader physician in standard fashion and under sterile conditions. Apgars were 8/9 at 1 and 5 minutes respectively. hemorrhage with QBL 1400 mL. She initially experienced delayed ability to ambulate due to leg numbness and required an indwelling catheter for urination for 12 hrs after delivery. In addition, she experienced sharp shooting lower back discomfort that was evaluated by anesthesia and she was cleared neurologically by them with no concern for epidural hematoma. She was given gabapentin for pain management and since her initial dose her pain has been well controlled and has continually improved. She is ambulating well and is tolerating a regular diet. She is urinating without difficulty and her lochia is normal. She expresses some concern for urinary frequency with limited urinary output. We discussed that this is likely a symptom of prolonged urinary catheter placement and 3rd degree laceration/urethral irritation however a urine culture was sent and she will be notified of results once received with initiated treatment PRN. Her pain is well controlled with oral medications. She will be discharged home today on day #2 with instructions to continue taking her vitamin while and to continue taking Ibuprofen and Tylenol over the counter as needed for pain management. In addition, secondary to her increased blood loss she was instructed to take PO iron twice daily in combination with OTC stool softener to titrate stools to toothpaste consistency. Flexaril Rx was sent to preferred pharmacy for lower back musculoskeletal pain PRN. She intends to follow up with myself at [facility] in 1 week for routine visit or sooner if needed. She has been given precautions to call if she has any worsening fevers, chills, abdominal pain, increased vaginal bleeding or foul smelling vaginal lochia. Physical Exam: Normocephalic, atraumatic. Heart RRR w/o M/G/R, lungs CTAB, abdomen soft and nontender with fundus firm at U, perineum intact, repair with mild edema, light lochia rubra, bilateral LE's no edema. Mood is good. ALLERGIES Allergies Allergy/AdvReac Type Severity Reaction Status Date / Time No Known Drug Allergies Allergy Verified 10/04/24 14:05 MEDICATIONS Ambulatory Orders Medication Instructions Recorded Confirmed vits 75-iron 28 mg-folic 1 pkg PO DAILY 05/03/24 10/24/24 acid 800 mcg-omega3 440 mg oral pack (One Daily ) PHYSICAL EXAM AT DISCHARGE Vital Signs: Vital Signs x48h Temp Pulse Resp BP 10/27/24 08:00 98.4 F 85 16 116/71 LABS 10/27/24 07:05 10/25/24 13:30 Discharge Plan Discharge Patient Disposition: Home, Self Care Prescriptions: Continued One Daily [id number] mg-mcg-mg combo pack 1 pkg PO DAILY Discontinued aspirin [Adult Low Dose Aspirin] 81 mg tablet,delayed release (DR/EC) 81 mg PO DAILY Print Language: Czech Patient Instructions: Vaginal After, Self Care, ED Anemia Iron Deficiency Follow-up Care: Sondra Epstein ARNP [Primary Care Provider] - Liz Stanton CNM, ARNP [Provider Admit Priv/Credential] -
[2024-10-27 12:23] LABS: BACTERIA,URINE Few /HPF (None Seen); SQUAMOUS EPITHELIAL CELL,UR FEW Squamous (<= Few); WBC CLUMPS,URINE PRESENT; WBC,URINE >25 /HPF (0-5)
[2024-10-27 16:31] VITALS: BP 111/79; TEMP 99.1; O2SAT 100
--- NOTE | 2024-10-27 16:45 | Labor Flowsheet ---
Labor Flowsheet Datetime Report Generated by CPN: 10/27/2024 16:45 Datetime: 10/27/2024 16:27 VITAL SIGNS NBP Sys/Blank/Mean (mmHg): 117 : 79 : 88 Pulse: 88 Datetime: 10/26/2024 14:29 SpO2 (%): 99 Datetime: 10/25/2024 20:30 Stage of : Recovery PAIN Pain Scale: 3 Pain Relief Measures: Comfort Measures Datetime: 10/25/2024 19:15 Pain Presence: Intermittent Pain Type: Burning; Cramping; Pressure; Ache Pain Location: Abdomen; Back; Perineum Pain Goal: 1 Datetime: 10/25/2024 18:00 Respirations: 17 Temperature (C): 37.6 Temperature Route: Oral Datetime: 10/25/2024 17:14 LaborFlag: Labor Datetime: 10/25/2024 17:00 UTERINE ACTIVITY Monitor Mode: External Frequency (min): 2 Quality: Strong Duration (sec): 60 Pattern: Normal: <= 5 Contractions in 10 Minutes Resting Tone (Palpate): Relaxed Decelerations: Variable Comments: FHR 130s in between pushing Datetime: 10/25/2024 16:45 ASSESSMENT A Monitor Mode: External US FHR Baseline Rate : 130 Variability: Moderate 6-25 bpm Accelerations: None Category: Category II Datetime: 10/25/2024 16:18 MEDICATIONS Pitocin (milliunits): Increased to @ 16 Medication Comments: provider pushing with pt Datetime: 10/25/2024 16:15 Oxygen Method: Room Air Datetime: 10/25/2024 16:09 STAGE 2 Pushing: Coached on Pushing Pushing Position: Pushing with Contractions Pushing Progress: Descent with Pushing Datetime: 10/25/2024 15:39 Membrane Comments: forebag AROM Datetime: 10/25/2024 14:15 FHR Baseline Changes: No Baseline Change Datetime: 10/25/2024 13:37 VAGINAL EXAM Dilatation (cm): 10.0 Datetime: 10/25/2024 13:16 COMMUNICATION Communication: Provider at Bedside Datetime: 10/25/2024 13:00 Patient Care Comments: IV infiltrated Datetime: 10/25/2024 12:45 Patient Position/Activity: High Fowlers Datetime: 10/25/2024 12:40 Notification Reason: Labor Status Communication Comments: may increase pit Datetime: 10/25/2024 12:00 Pain Assessment Comments: feeling pressure with ctx Datetime: 10/25/2024 11:08 Effacement (%): 100 Station: 1 Exam by: abril zapata rnc Vaginal Bleeding: Normal Show Cervix, Position: Anterior Datetime: 10/25/2024 09:43 PATIENT CARE IV/Blood Work: IV Infusing per Order Datetime: 10/25/2024 09:24 Hygiene: Jenny Care Datetime: 10/25/2024 09:02 Provider Reviewed Strip: Yes Datetime: 10/25/2024 08:37 Pitocin Checklist: At Least 1 Acceleration of 15 bpm x 15 Seconds in 30 Minutes or Adequate Variabi lity; No More than 1 Late Deceleration Occurred in Past 30 Minutes; No More than 2 Variable Decelerat ions > 60 Seconds in Duration and decreasing >60 bpm in 30 minutes; No More than 5 Uterine Contractio ns in 10 Minutes for any 20 Minute Interval; Uterus Palpates Soft between Contractions Datetime: 10/25/2024 08:00 Anesthesia Level Check: T9 Datetime: 10/25/2024 06:17 Monitor Interventions for UA: [place] Adjusted Datetime: 10/25/2024 06:00 MATERNAL ASSESSMENT Level of Consciousness: Alert Nausea/Vomiting: Denies Datetime: 10/25/2024 05:35 Headache: Denies RUQ Epigastric Pain: Denies Datetime: 10/25/2024 04:21 I/O Interventions: Ice Chips Given Datetime: 10/25/2024 03:43 Monitor Interventions for FHR: Ultrasound Adjusted Datetime: 10/25/2024 03:38 Cervix, Consistency: Soft Datetime: 10/25/2024 01:18 Pain Coping: Sleeping Datetime: 10/25/2024 00:13 Membranes Ruptured Date/Time: 10/24/2024 20:05 Datetime: 10/24/2024 22:13 Magnesium/Antihypertensives: Ephedrine IV (mg) @ 5 Datetime: 10/24/2024 21:14 Epidural Procedure Other: Pump Started Datetime: 10/24/2024 21:09 Epidural Procedure: Loading Dose Datetime: 10/24/2024 20:54 PROCEDURE TIME OUT Procedure Verify: Correct Patient Identity; Correct Side and Site are Marked; Accurate Procedure Co nsent Form; Agreement on Procedure to be Done; Correct Patient Position; Relevant Images and Results are Properly Labeled and Displayed; Addressed Need to Administer Antibiotics or Fluids for Irrigation ; Safety Precautions Based on Patient History or Medication Use ANESTHESIA Anesthesia Plans: Epidural Epidural Positioning: Sitting Datetime: 10/24/2024 20:37 Anesthesia Comments: sitting on edge of bed awaiting epidural Datetime: 10/24/2024 20:05 Membrane Status: Ruptured Membranes Rupture Method: Spontaneous Amniotic Fluid Color: Clear Amniotic Fluid Amount: Large Amniotic Fluid Odor: Normal Datetime: 10/24/2024 19:44 Comfort Measures: Breathing/Relaxation; Hot Shower/Tub/Spa Datetime: 10/24/2024 19:32 DTR's/Clonus: DTRs 2+; No Clonus TEACHING Plan of Care: Plan of Care Discussed Datetime: 10/24/2024 18:36 Cervical Ripening Agents: Cytotec @ Datetime: 10/24/2024 15:15 Contraction Comments: mild to moderate
== END 2024-10-27 16:44 | disposition home or self-care (01) | DRG 768 ==
LOC: WFO 07:50 → FBP 07:51
PROVIDERS: ADMIT Nurse Practitioner; ATTEND Nurse Practitioner